=== PATIENT | male | born 1975 | race African-American/Black ===

== ENCOUNTER 2019-03-25 19:01 | Emergency (ER) | payer OTHER ==
[~2019-03-25] VITALS: Ht 185.4 cm; Wt 98.0 kg
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
[2019-03-25] MEDS ORDERED: LIDOCAINE 2% 20 ML VIAL. IJ ONE (19:35)
[2019-03-25] MEDS ORDERED: HYDROcodon/IBUPROFEN 7.5/200MG 1 TAB TABLET PO ONE (20:00)
[2019-03-25] MEDS ORDERED: CEPH-264 PO (20:39)
[2019-03-25] MEDS ORDERED: HYDR-1179 PO (20:39)
[2019-03-25] MEDS ORDERED: cefTRIAXone IM 1 GM VIAL IM ONE (20:45)
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
[2019-03-25 21:46] VITALS: BP 129/53
== END 2019-03-25 22:18 | disposition home or self-care (01) ==
LOC: EEVIPCON 19:01 → ER 19:01
DX: S02.5XXA Fracture of tooth (traumatic), initial encounter for closed fracture (principal); S01.511A Laceration without foreign body of lip, initial encounter; W51.XXXA Accidental striking against or bumped into by another person, initial encounter; Y93.67 Activity, basketball; Y92.89 Other specified places as the place of occurrence of the external cause; Y99.8 Other external cause status
CPT/HCPCS: 12011; 70486; 96372; 99284; J0696; J2001

== ENCOUNTER 2021-07-24 10:43 | Emergency (ER) | payer OTHER ==
[~2021-07-24] VITALS: Ht 185.4 cm; Wt 106.8 kg
[~2021-07-24 10:43] MED LIST: CEPH-264 PO; HYDR-1179 PO
[2021-07-24 10:45] VITALS: BP 157/104
[2021-07-24] MEDS ORDERED: KETOROLAC 60 MG/2 ML VIAL. IM ONE (11:00)
[2021-07-24] MEDS ORDERED: ORPHENADRINE CITRATE 60 MG/2 ML VIAL. IM ONE (11:00)
[2021-07-24] MEDS ORDERED: ACETAMINOPHEN 325 MG TABLET PO ONE (11:00)
[2021-07-24] MEDS ORDERED: CYCL-331 PO (11:20)
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
== END 2021-07-24 11:44 | disposition home or self-care (01) ==
LOC: ER 10:43
DX: M54.5 Low back pain (principal)
CPT/HCPCS: 96372; 99284; J1885; J2360